=== PATIENT | female | born 1980 | race Caucasian/White ===

== ENCOUNTER 2020-09-01 14:18 | Inpatient (IN) | payer MEDICAID, SELFPAY ==
[2020-09-01] VITALS (13 sets, daily range): BP systolic 143–185; BP diastolic 77–129; PULSE 103–118; RESP 15–24; TEMP 36.2–36.9; O2SAT 93–98; BMI 33.6; BMI 38.9
--- NOTE | 2020-09-01 15:07 | EKG12_ITS ---
Test Reason : EDEMA Blood Pressure : / mmHG Vent. Rate : 114 BPM Atrial Rate : 114 BPM P-R Int : 130 ms QRS Dur : 084 ms QT Int : 292 ms P-R-T Axes : 042 103 044 degrees QTc Int : 402 ms Sinus tachycardia Rightward axis Low voltage QRS Nonspecific T wave abnormality Abnormal ECG Confirmed by MIRELA NAZARIO, CHRIS ([id number]), editorial manager CAROLE WESTBROOK ([id number]) on 09/03/2020 12:43:55 PM Referred By: BB Confirmed By:CHRIS DIETZ MD
--- NOTE | 2020-09-01 15:07 | RAD_ITS ---
STUDY: X-RAY CHEST REASON FOR EXAM: Female, 40 years old. PT ARRIVES TO ED WITH BILAT LOWER EXTREMITY SWELLING AND BLISTERS. TECHNIQUE: Single AP portable view of the chest. COMPARISON: None. FINDINGS: EKG electrodes are seen. Patchy bibasilar infiltrates worse in the right lower lobe with blunting of both costophrenic angles worse on the right side. There is borderline cardiomegaly. Normal mediastinum and elham. Normal visualized pulmonary arteries. Normal visualized aortic arch and descending thoracic aorta. Normal visualized thoracic spine. Normal visualized ribs, clavicles, and shoulders. There is no demonstrated abnormality of the visualized soft tissue structures of the upper abdomen. RAD/Chest 1 View (Portable) IMPRESSION: Patchy bibasilar infiltrates worse on the right side with blunting of both costophrenic angles. Borderline cardiomegaly. Electronically Signed: Ridge Geronimo MD at 15:54 EST , Service support ,
--- NOTE | 2020-09-01 15:08 | ED.VIS.DYS ---
History of Present Illness Chief Complaint: Edema Informant: Patient Onset: Weeks - several Activity at onset: Light Activity - 10 feet or less and pt needs to stop and rest Timing: Waxes and wanes Quality: Dyspnea on exertion, Orthopnea Current Severity: Severe Maximum Severity: Severe Worsened by: Coughing, Exertion, Lying flat Relieved by: Rest Associated Symptoms: Cough - x1 week, Green sputum, - - intermittent changes in the way food tastes lately, but no loss of taste/smell. Negative for: Fever Chest Pain: None Narrative: Patient has had swelling in both of her lower legs for at least 2 months. In the last week or 2 it has become much worse, she has had splits in the skin of her feet and lower legs that have been oozing clear fluid at times, and the swelling has gone up to her lower abdomen. She has developed orthopnea and her dyspnea is with very little exertion. She states she does not leave the house and has not traveled out of the area, denies any contact with people with Covid that she knows of, and has never had a that she knows of. She denies any fevers or chills or myalgias lately. Her legs feel tight but do not hurt except for her heels which are sore from the splits in the skin. She does not have any known medical problems but admits that he has been years since she has seen PCP, she used to go to the [facility] locally for primary care. Past Medical History - Allergies and Home Meds Allergies/Adverse Reactions: Allergies acetaminophen [From Tylenol-Codeine #3] Allergy (Verified 09/01/20 14:24) Rash codeine phosphate [From Tylenol-Codeine #3] Allergy (Verified 09/01/20 14:24) Rash tramadol Allergy (Verified 09/01/20 14:24) Nausea Primary Care Physician: Eb Miller MD [Primary Care Provider] - Past Medical History: None Lives: Spouse/ Significant Other Smoking Status: Current every day smoker Drugs: None Review of Systems General: Reports: Malaise. Denies: Chills, Fever, Sweats Eyes: Denies: Visual changes - bilaterally, Diplopia ENT: Denies: Bilateral ear pain, Rhinorrhea, Sore throat Cardiovascular: Denies: Chest pain, Palpitations Respiratory: Reports: Dyspnea, Cough, Sputum, Dyspnea on exertion, Orthopnea Gastrointestinal: Denies: Abdominal pain, Nausea, Vomiting, Diarrhea, Melena, Hematochezia Genitourinary: Denies: Dysuria, Hematuria, Frequency Musculoskeletal: Reports: Swelling, Extremity Pain - Feet/heels only see HPI. Denies: Myalgias, Back pain Skin: Denies: Rash, Wounds Neurological: Denies: Headache, Weakness, Numbness Endocrine: Denies: Polyuria, Polydipsia, Heat intolerance, Cold intolerance Physical Exam Vital Signs/Narrative: Vital Signs Temp Pulse Resp BP Pulse Ox 09/01/20 14:19 97.2 F L 118 H 15 155/129 H 98 Inital Vital Signs reviewed: Yes General: Well nourished, Well developed, No Acute Distress Head: Normocephalic, Atraumatic Eyes: Perrl, EOMI ENT: Moist mucous membranes, No rhinorrhea Neck: Supple, Nontender, No lymphadenopathy, - - Mild JVD present Cardiovascular: Regular rate, Regular rhythm, No murmurs, Tachycardia Respiratory: No distress, CTA bilaterally, Chest nontender Abdomen: Soft, Nontender, Nondistended, Normal bowel sounds, - - Edema lower abdominal wall up to about the level of the umbilicus, nontender but erythematous with blanching Back: Nontender, Normal Inspection. Negative for: CVA tenderness Extremities: Tenderness - At heels only where there are several splits in the skin that do not appear acute, trying to heal, do not appear infected, no discharge expressible, Edema - 4+ all the way up to abdominal wall, symmetric bilateral lower extremities with changes of stasis dermatitis, - - 2+ palpable dorsalis pedis pulses, symmetric Skin: Rash - Erythematous nontender blanching discoloration of both legs all the way up, darker distally. Several splits in the skin, superficial, none appear to be infected.. Negative for: Cyanosis Neurological: Alert, Oriented x3, Cranial nerves II-XII grossly intact, Normal Strength, Normal Sensation, Normal Gait Psychological: Normal affect, Normal Mood Diagnostic/Tx/Re-eval Clinical Impression(s) from Imaging Studies Chest X-Ray 09/01/20 15:07 IMPRESSION: Patchy bibasilar infiltrates worse on the right side with blunting of both costophrenic angles. Borderline cardiomegaly. Electronically Signed: Ridge Geronimo MD at 15:54 EST , Service support , Chest CT 09/01/20 17:15 IMPRESSION: 1. Bilateral pleural effusions, right greater than left. 2. Groundglass infiltrate in the left upper lobe. 3. Small pericardial effusion. 4. Anasarca. Electronically Signed: Roosevelt ContiDO at 17:58 EST Tel [phone], Service support , 09/01/20 15:35 Mucosa - Nose SARS-CoV-2 Antigen (Rapid) - Final 09/01/20 15:14 Mucosa - Nasopharyngeal Influenza Types A,B Direct FA (LISA) - Final Laboratory Results 09/01/20 09/01/20 09/01/20 15:35 15:35 15:35 WBC 9.6 RBC 4.91 Hgb 14.0 Hct 44.7 MCV 91.0 MCH 28.5 MCHC 31.3 L RDW Std Deviation 50.8 H RDW Coeff of Bro 15.7 H Plt Count 237 MPV 10.7 Immature Gran % (Auto) 0.300 Neut % (Auto) 71.0 H Lymph % (Auto) 21.3 [place] % (Auto) 6.5 Eos % (Auto) 0.5 Baso % (Auto) 0.4 Absolute Neuts (auto) 6.8 Absolute Lymphs (auto) 2.04 Nucleated RBC % 0 Sodium 139 Potassium 3.8 Chloride 106 Carbon Dioxide 24.0 Anion Gap 9 BUN 14 Creatinine 0.81 Estim Creat Clear Calc 75.61 Est GFR (MDRD) Af Amer 99 Est GFR (MDRD) Non-Af 82 BUN/Creatinine Ratio 17.2 Glucose 126 H Calcium 8.3 L Troponin I 0.015 B-Natriuretic Peptide 784.8 H - Rhythm Strip Rhythm Strip: Sinus Tach Rate: 114 Ectopy: None - EKG Initial EKG Interpretation: No Acute Injury Pattern, Sinus Tachycardia, - - Low voltage. Prior: No Prior Treatment - Dyspnea: - - lasix - Medical Decision Making Differential includes renal failure or other renal syndrome such as nephrotic syndrome, congestive heart failure, venous insufficiency of the lower extremities. The work-up is more consistent with acute decompensated congestive heart failure. She remains fairly hypertensive, her blood pressure went up as high as 170/110. This is after she was given Lasix and urinated multiple times. Her chest x-ray shows what appeared to be possible infiltrates, and since she had low voltage on her EKG and had a resting tachycardia, given the clinical third spacing that she is doing that is fairly significant, I obtained a CT to rule out early cardiac tamponade. She does have a small pericardial effusion, but her heart size is otherwise normal and does not appear to be in tamponade. There are also pleural effusions much larger on the right than the left, and a small nonspecific groundglass infiltrate in the left upper lobe which I suspect is more likely due to fluid than infection. Given all of this, I recommend admission to the hospital not only for diuresis, but for echocardiogram and further work-up. Patient agreeable with admission. ED Disposition - Plan for ED Patient: Disposition: Acute Care Hospital [facility] Diagnosis: Acute CHF, Anasarca, Pleural effusion on right, Accelerated hypertension Referrals: Eb Miller MD [Primary Care Provider] -
[2020-09-01] MEDS: Furosemide 20 MG/2 ML VIAL IV (15:29)
[2020-09-01 15:53] LABS: Absolute Lymphocyte Count 2.04 X10^3/uL (0.83-4.51); Absolute Neutrophil Count 6.8 X10^3/uL (2.0-7.7); Basophil# 0.04 X10^3/uL; Basophil% 0.4 % (0-1); Eosinophil# 0.05 X10^3/uL; Eosinophils% 0.5 % (0-5); Hematocrit 44.7 % (37-47); Lymphocyte # 2.04 X10^3/ul (4.0); Lymphocyte % 21.3 % (19-41); Mean Corp Hgb Conc 31.3 g/dL (32-36); Mean Corpuscular Hgb 28.5 pg (27.0-32.0); Mean Platelet Vol. 10.7 fl (6.2-12.0); Monocyte# 0.62 X10^3/uL; Monocyte% 6.5 % (0-10); NRBC Flagged by Analyzer 0 % (0-5); Platelet Count 237 K/mm3 (150-450); RBC Distribution Width CV 15.7 % (11.6-14.6); RBC Distribution Width SD 50.8 fl (35.1-43.9); Red Blood Count 4.91 M/mm3 (4.2-5.4); White Blood Count 9.6 K/mm3 (4.4-11.0)
[2020-09-01 16:17] LABS: BNP,B-Type NATRIURETIC PEPTIDE 784.8 pg/mL (0-100)
[2020-09-01 16:22] LABS: Anion Gap 9 (5-15); BUN 14 mg/dL (7-18); BUN/Creat Ratio 17.2 RATIO (10-20); Calcium,Total 8.3 mg/dL (8.5-10.1); Chloride 106 mmol/L (98-107); Creatinine, Serum 0.81 mg/dL (0.55-1.02); EST Glomerular Filtration Rate 82 mL/min (>60); Est Glom Filt Rate - Afr Amer 99 mL/min (>60); Estimated Creatinine Clearance 75.61 ml/min; Glucose 126 mg/dL (74-106); Potassium 3.8 mmol/L (3.5-5.1); Sodium Level 139 mmol/L (136-145)
--- NOTE | 2020-09-01 17:15 | CT_ITS ---
STUDY: CT CHEST WITHOUT CONTRAST REASON FOR EXAM: Female, 40 years old. Bilateral lower extremity swelling. Blistering. RADIATION DOSAGE (If Supplied By Facility): CTDIvol = ( 19.18 ) mGy, DLP = ( 608.556 ) mGycm TECHNIQUE: Transaxial imaging was performed without the administration of intravenous contrast material. Multiplanar coronal and sagittal images were reformatted. Individualized dose optimization techniques were used for this CT. COMPARISON: Chest, 09/01/2020. FINDINGS: There is a large to moderate right pleural effusion with mild subsegmental atelectasis. There is a small left pleural effusion. There is a groundglass infiltrate in the left upper lobe. The heart is normal in size. Small pericardial effusion. Normal mediastinum. Normal hilar regions. Normal unenhanced pulmonary arteries. Normal aorta arch and descending thoracic aorta. Normal osseous structures. There is diffuse anasarca soft tissues of the chest wall and back. There is no demonstrated abnormality of the visualized upper abdomen. CT/Chest without Contrast IMPRESSION: 1. Bilateral pleural effusions, right greater than left. 2. Groundglass infiltrate in the left upper lobe. 3. Small pericardial effusion. 4. Anasarca. Electronically Signed: Roosevelt Conti DO at 17:58 EST Tel [phone], Service support ,
[2020-09-01] MEDS: Nitroglycerin SL (ED/IMG/CATH) 0.4 MG TABLET SUBLINGUAL (18:53)
--- NOTE | 2020-09-01 18:54 | HP.PCM_ITS ---
Problem List (1) Acute CHF Status: Acute (2) Anasarca Status: Acute (3) Pleural effusion on right Status: Acute (4) Accelerated hypertension Status: Acute History of Present Illness Date of Admission: 09/01/20 Chief Complaint: Leg edema, shortness of breath. The patient is a 40 year old F with no significant past medical history presented to the emergency room because of edema and shortness of breath. At this time, patient is very anxious and irritable. She stated that she has been having this leg edema for at least couple of months, involving both legs and extending up to the lower abdomen, associated with weight gain as well as shortness of breath. Also, she complains of shortness of breath that has been going on for several weeks, mainly exertional, can walk only for about 10 feet or less, aggravated by more activity, reported associated orthopnea as well and without relieving factors. She denied chest pain, palpitation, dizziness or lightheadedness. Her boyfriend mentioned that her blood pressure has been high lately, it has been up to 180 systolic. She denied history of hypertension and denied being on antihypertensive medications. She admitted using amphetamines. In the emergency department, she was afebrile, tachycardic, blood pressure was elevated, pulse ox was 97% on room air. Routine blood work was unremarkable. EKG revealed normal sinus rhythm, low voltage QRS, no acute ischemic changes. Troponin was negative. BNP was elevated at 784. Chest x-ray revealed bilateral pleural effusion, more on the right side, pulmonary vascular congestion, cardiomegaly. CTA chest done and also showed bilateral pleural effusion, more on the right side, small pericardial effusion, anasarca, no PE or dissection. She is being admitted for acute CHF, anasarca and uncontrolled hypertension. Past Medical History Allergies acetaminophen [From Tylenol-Codeine #3] Allergy (Verified 09/01/20 14:24) Rash codeine phosphate [From Tylenol-Codeine #3] Allergy (Verified 09/01/20 14:24) Rash tramadol Allergy (Verified 09/01/20 14:24) Nausea Home Medications: Ambulatory Orders Medication Instructions Recorded NK 09/01/20 Surgical History: - - Ovarian cyst removal. 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 - *Family History Maternal History Items: No pertinent history Paternal History Items: Hypertension Review of Systems Constitutional: Denies: Anorexia, Chills, Fever, Weakness Eyes: Denies: Blurred vision, Double vision, Drainage, Redness HEENT: Denies: Difficulty Hearing, Ear Pain, Eye Pain, Nasal Congestion, Sore Throat Cardiovascular: Reports: Edema, Orthopnea. Denies: Chest Pain, Claudication, Chest Pressure, Chest Tightness, Heaviness, Light Headedness, Palpitations Respiratory: Reports: Cough, Shortness of breath upon exertion. Denies: Pleuritic Pain, Sputum production, Wheezing Gastrointestinal: Denies: Abdominal Pain, Constipation, Diarrhea, Nausea, Vomiting Genitourinary: Denies: Dysuria, Frequency, Hematuria Musculoskeletal: Denies: Arm Pain, Back Pain, Foot Pain Skin: Denies: Dryness, Rash Neurological: Denies: Balance problems, Blurred vision, Double vision, Slurred speech, Confusion, Headaches, Incoordination Psychiatric: Denies: Anxiety, Depression Endocrine: Denies: Change in Body Habitus, Polydipsia, Polyuria VTE Information - Inpt Only VTE Present on Admission: No VTE Mechan Device Prophylaxis: None VTE Pharm Prophylaxis ordered?: No Patient Problems: Active and Suspected Problems Acute CHF (Acute) Anasarca (Acute) Pleural effusion on right (Acute) Accelerated hypertension (Acute) - Physical Exam Vitals/I&O's: Vital Signs Temp Pulse Resp BP Pulse Ox 97.2 F L 113 H 23 H 170/110 H 97 09/01/20 14:19 09/01/20 18:11 09/01/20 18:11 09/01/20 18:15 09/01/20 18:11 Oxygen Delivery Method Room Air Weight: 190 lb Body Mass Index (BMI) 33.6 General: Alert, Oriented x3, Cooperative, - - Anxious, irritable. HEENT: Atraumatic, PERRLA, EOMI, Normocephalic Oral: Moist Mucosa, No Gingival or Mucosal Lesions/ Ulcerations Neck: Supple, No JVD, Negative Carotid Bruits, Trachea Midline, Thyroid Normal Size and Texture Lungs: No rhonchi, No wheeze, No rales, Diminished, Short of Breath, - - Decreased breath sounds at the bases, more on the right base, otherwise clear. Cardiovascular: Regular rate, Regular Rhythm, Normal S1, Normal S2, PMI Normal, Tachycardic Abdomen: Bowel Sounds Present, Soft, Non Tender, Non-Distended, No Hepato- splenomegaly, Obese Extremities: No clubbing, No cyanosis, Edema - ++ Edema extending up to the lower abdomen. Mild erythema. Multiple bilateral lower extremity dry blisters. Skin: No rashes, Ulcer/ Wound Lymphatic: No Cervical, Supraclavicular, or Inguinal Adenopathy Neurological: Cranial nerves II-XII grossly intact, Motor Exam 5/5 strength throughout Psych/Mental Status: Agitated, Anxious, Restless Microbiology Past 72 Hours 09/01/20 15:35 Mucosa - Nose SARS-CoV-2 Antigen (Rapid) - Final 09/01/20 15:14 Mucosa - Nasopharyngeal Influenza Types A,B Direct FA (LISA) - Final Laboratory Results 09/01/20 15:35: WBC 9.6, RBC 4.91, Hgb 14.0, Hct 44.7, MCV 91.0, MCH 28.5, MCHC 31.3 L, RDW Std Deviation 50.8 H, RDW Coeff of Bro 15.7 H, Plt Count 237, MPV 10.7, Immature Gran % (Auto) 0.300, Neut % (Auto) 71.0 H, Lymph % (Auto) 21.3, [place] % (Auto) 6.5, Eos % (Auto) 0.5, Baso % (Auto) 0.4, Absolute Neuts (auto) 6.8, Absolute Lymphs (auto) 2.04, Nucleated RBC % 0 09/01/20 15:35: Sodium 139, Potassium 3.8, Chloride 106, Carbon Dioxide 24.0, Anion Gap 9, BUN 14, Creatinine 0.81, Estim Creat Clear Calc 75.61, Est GFR (MDRD) Af Amer 99, Est GFR (MDRD) Non-Af 82, BUN/Creatinine Ratio 17.2, Glucose 126 H, Calcium 8.3 L, Troponin I 0.015 09/01/20 15:35: B-Natriuretic Peptide 784.8 H Clinical Impression(s) from Imaging Studies Chest X-Ray 09/01/20 15:07 IMPRESSION: Patchy bibasilar infiltrates worse on the right side with blunting of both costophrenic angles. Borderline cardiomegaly. Electronically Signed: Ridge Geronimo MD at 15:54 EST , Service support , Chest CT 09/01/20 17:15 IMPRESSION: 1. Bilateral pleural effusions, right greater than left. 2. Groundglass infiltrate in the left upper lobe. 3. Small pericardial effusion. 4. Anasarca. Electronically Signed: Roosevelt Conti DO at 17:58 EST Tel [phone], Service support , Assessment/Plan All Active Problems Acute CHF (Acute) Anasarca (Acute) Pleural effusion on right (Acute) Accelerated hypertension (Acute) This is a 40 years old female patient presented to the emergency room for bilateral leg edema, shortness of breath and orthopnea, found to have elevated blood pressure and findings consistent with acute CHF and she is being admitted for evaluation and treatment. #1 acute CHF of unspecified type/anasarca: Apparently, patient had uncontrolled hypertension for unknown time. Chest x-ray and CTA chest reviewed. EKG revealed sinus tachycardia with low voltage QRS, no acute ischemic changes. BMP is elevated. Troponin was normal. Plan: Admit to PCU, cardiac monitoring, serial cardiac enzymes, 2D echocardiogram, start IV Lasix for diuresis, start Coreg twice daily, lisinopril daily, input output chart, check TSH, hemoglobin A 1c, lipid profile, start baby aspirin, repeat CBC and BMP tomorrow morning. #2 uncontrolled newly diagnosed hypertension: According to the patient's boyfriend, her blood pressure has been high lately, it is up to 180 systolic. Plan: Start Coreg 6.25 mg p.o. twice daily, lisinopril 10 mg p.o. daily, IV hydralazine as needed. #3 bilateral pleural effusion: This is probably due to CHF. CTA chest reviewed, no PE or dissection. She is afebrile, no leukocytosis, I doubt pneumonia. Plan for diuresis as above. #4 drug abuse: Patient admitted using amphetamines. We will do a urine drug screen. #5 DVT prophylaxis: Low risk patient, no prophylaxis indicated, ambulate. This note was generated with [employer] software. It may contain incorrect words, spelling, and punctuation that were not noted in checking the note before signing. Inpatient E&M: 81095 Init Hosp L3
--- NOTE | 2020-09-01 19:22 | ECHOD_ITS ---
Reason For Study: CHF Procedure This was a 2D Doppler, Color Flow transthoracic echocardiogram. Technically difficult study, patient scanned sitting up. Unable to use Definity due to increased pressures. The study was technically difficult. Exam performed portable in patient room. Left Ventricle Normal LV size. D shaped septum in systole and diastole. Mild concentric left ventricular hypertrophy. Left ventricular systolic function is normal. The estimated ejection fraction is 55 %. Diastolic function is indeterminate. No regional wall motion abnormalities noted. Right Ventricle Severely dilated right ventricle. Moderate global right ventricular systolic dysfunction. Atria Normal left atrium. The right atrium is severely enlarged. No doppler evidence for ASD. Mitral Valve There is no mitral annular calcification. Normal mitral valve. Trivial mitral valve insufficiency. Tricuspid Valve Mild diffuse thickening of the tricuspid valve. Moderately severe (3+) tricuspid valve insufficiency. Right ventricular systolic pressure estimated to be 82 mmHg. Aortic Valve Trisinus/trileaflet aortic valve. Mild focal aortic valve calcification. Pulmonic Valve The pulmonic valve is not well visualized. Mild-Moderate (1-2+) pulmonic valve insufficiency. Great Vessels Normal sized aortic root. Pericardium/Pleural Small pericardial effusion. There are no echocardiographic indications of cardiac tamponade. MMode/2D Measurements & Calculations LVIDd: 3.1 cm IVSd: 1.5 cm Ao root diam: 3.0 cm LVIDs: 2.1 cm LVPWd: 1.3 cm LA dimension: 2.9 cm RVDd: 5.6 cm FS: 34.0 % LAV(MOD-sp4): 23.5 ml LA A4 area: 12.2 cm2 RA A4 area: 20.0 cm2 Time Measurements MV dec time: 0.18 sec Doppler Measurements & Calculations MV E max marty: 44.8 cm/sec Lat Peak E' Marty: 6.1 cm/sec Med Peak E' Marty: 5.3 cm/sec MV A max marty: 64.4 cm/sec E/E' lat: 7.3 E/E' med: 8.5 MV E/A: 0.69 MV V2 max: 65.9 cm/sec MV P1/2t max marty: 31.8 cm/sec Ao V2 max: 84.8 cm/sec MV max P.7 mmHg MV P1/2t: 68.7 msec Ao max P.9 mmHg MV V2 mean: 32.3 cm/sec MV dec slope: 135.6 cm/sec2 MV mean P.53 mmHg MVA(P1/2t): 3.2 cm2 MV V2 VTI: 9.7 cm LV V1 max: 77.1 cm/sec PA V2 max: 76.1 cm/sec TR max marty: 429.1 cm/sec LV V1 max P.4 mmHg TR max P.7 mmHg Interpretation Summary The study was technically difficult. Left ventricular systolic function is normal. The estimated ejection fraction is 55 %. D shaped septum in systole and diastole. Mild concentric left ventricular hypertrophy. Severely dilated right ventricle. Moderate global right ventricular systolic dysfunction. The right atrium is severely enlarged. Trivial mitral valve insufficiency. Mild diffuse thickening of the tricuspid valve. Moderately severe (3+) tricuspid valve insufficiency. Mild focal aortic valve calcification. Mild-Moderate (1-2+) pulmonic valve insufficiency. Small pericardial effusion. There are no echocardiographic indications of cardiac tamponade. Right ventricular systolic pressure estimated to be 82 mmHg c/w severe pulmonary hypertension. Diastolic function is indeterminate. Ordering Physician: Joel Jacques Referring Physician: Eb Miller Performed By: Anuj Lyons RCS
[2020-09-01 20:01] LABS: Thyroid Stim Hormone (TSH) 2.34 uIU/mL (0.358-3.74)
[2020-09-01] MEDS: hydrALAZINE 20 MG/ML Vial 10 MG IV (20:08)
[2020-09-01] MEDS: Furosemide 40 MG/4 ML Vial IV (20:22)
[2020-09-01] MEDS: Carvedilol 6.25 MG Tablet PO (20:22)
[2020-09-01 20:51] LABS: Hemoglobin A1c 6.5 % (3.8-5.6)
--- NOTE | 2020-09-01 21:19 | NURSING ---
Patient requested evening medications early.
[2020-09-01] MEDS: LORazepam 2 MG/ML Syringe 0.5 MG IV (22:43)
[2020-09-02] VITALS (10 sets, daily range): BP systolic 110–145; BP diastolic 85–103; PULSE 96–109; RESP 18; TEMP 36.1–37.1; O2SAT 93–98
[2020-09-02] LABS: Bedside Glucose 106 mg/dL (70-110)
[2020-09-02 06:34] LABS: Absolute Lymphocyte Count 1.99 X10^3/uL (0.83-4.51); Absolute Neutrophil Count 7.3 X10^3/uL (2.0-7.7); Basophil# 0.05 X10^3/uL; Basophil% 0.5 % (0-1); Eosinophil# 0.05 X10^3/uL; Eosinophils% 0.5 % (0-5); Hematocrit 45.4 % (37-47); Hemoglobin 13.5 g/dL (12.0-15.0); Lymphocyte # 1.99 X10^3/ul (4.0); Lymphocyte % 19.5 % (19-41); Mean Corp Hgb Conc 29.7 g/dL (32-36); Mean Corpuscular Hgb 27.6 pg (27.0-32.0); Mean Corpuscular Volume 92.7 fL (81-99); Monocyte# 0.74 X10^3/uL; Monocyte% 7.3 % (0-10); NRBC Flagged by Analyzer 0.2 % (0-5); Neutrophil # 7.29 X10^3/uL (2.7-7.7); Neutrophil % 71.6 % (47-70); Platelet Count 229 K/mm3 (150-450); RBC Distribution Width CV 15.9 % (11.6-14.6); RBC Distribution Width SD 53.8 fl (35.1-43.9); White Blood Count 10.2 K/mm3 (4.4-11.0)
[2020-09-02] MEDS: 0.9% Saline Lock 10 ML Syringe IV ×2 (06:41→21:07)
[2020-09-02] MEDS: Furosemide 40 MG/4 ML Vial IV ×3 (06:41→21:05)
[2020-09-02 07:01] LABS: Anion Gap 8 (5-15); BUN 13 mg/dL (7-18); BUN/Creat Ratio 14.5 RATIO (10-20); Calcium,Total 8.3 mg/dL (8.5-10.1); Chloride 105 mmol/L (98-107); Cholesterol 130 mg/dL (200); EST Glomerular Filtration Rate 74 mL/min (>60); Est Glom Filt Rate - Afr Amer 89 mL/min (>60); Estimated Creatinine Clearance 68.05 ml/min; Glucose 96 mg/dL (74-106); High Density Lipoprotein 33 mg/dL; Potassium 3.8 mmol/L (3.5-5.1); Sodium Level 139 mmol/L (136-145); Triglycerides 77 mg/dL; Very Low Density Lipoprotein 15 mg/dL (5-40)
[2020-09-02 07:49] LABS: Amphetamine Urine VISTA POSITIVE (<1000 ng/mL); Barbiturate Urine VISTA NEGATIVE (< 200 ng/mL); Benzodiazepine Urine VISTA NEGATIVE (< 200 ng/mL); Cocaine Urine VISTA NEGATIVE (< 300 ng/mL); Ecstacy Urine VISTA NEGATIVE (< 500 ng/mL); Methadone Urine VISTA NEGATIVE (< 300 ng/mL); PCP Urine VISTA NEGATIVE (< 25 ng/mL); THC Urine VISTA NEGATIVE (< 50 ng/mL); Vista UDS pH Range 6
--- NOTE | 2020-09-02 08:13 | NURSING ---
Was asked to see patient for redness and wounds to bilateral lower legs. Pt is not alert and oriented at this time. unable to tell me why she came to the hospital. bilateral lower legs are reddened with scattered scratches and some scabbed areas. bilateral heels are very dry and cracked. there is moderate edema noted. no drainage noted from the legs and no wounds that need wound care. washed legs and feet with soap and water. pat dry. applied aloe vesta to bilateral legs and feet. applied kerlix and TERE wraps from the base of the toes to just below the knees. pt tolerated well. See wound photos.
[2020-09-02] MEDS: Carvedilol 6.25 MG Tablet PO ×2 (10:07→21:05)
[2020-09-02] MEDS: Aspirin E.C. 81 MG Tablet PO (10:07)
[2020-09-02] MEDS: Lisinopril 20 MG Tablet PO (10:07)
--- NOTE | 2020-09-02 10:14 | NURSING ---
skin photo: left lower leg
--- NOTE | 2020-09-02 10:15 | NURSING ---
skin photo: right lower leg
--- NOTE | 2020-09-02 11:30 | CASEMGMT ---
ANGEL LUIS ROA assessment: Face to Face with patient for initial transition planning/care coordination assessment. ANGEL LUIS ROA introduced self and role at [facility], pt voices understanding and consents to assessment. Pt is lying in bed in no distress but falls asleep when not stimulated verbally. Pt is A/Ox4 and answers all questions appropriately at this time. Care providers, pharmacy, and demographics verified. Presentation: Pt arrives to ED w/ bilat lower extremity swelling/blister Admitting dx: Acute CHF, HTN PCP: Pt states does not currently have PCP, so list of local PCP's provided to pt. Specialists: Pt states no current specialists. Preferred Pharmacy: [facility] Insurance: Glez Prescription Benefit: Glez Living Will/HPOA: Pt states does not have LW/HPOA and declines AD info at this time. LNOK: Rebekah Leblanc, mother; Shemar Franco, sig other Living Arrangements: Pt states lives with sig other in 1 story apartment and states no concerns at home at this time. Pt states is independent with ADL's. Transportation: Pt states her friends drive and states no transportation concerns. DME/HHC: Pt states has a rollator and states no need for any further DME. Pt states no hx of HHC or SNF in the past. Pt states no concerns with going home at time of discharge. Pt states is currently unemployed. Pt states smokes about a pack of cigarettes daily, does not drink ETOH and declines recreational drug use. Pt states no further concerns/needs at this time. CM to follow for any further discharge planning/needs. Advised pt to ask for CM if any further questions/concerns/needs arise, voices understanding. Pt Goal: [place] [facility]
--- NOTE | 2020-09-02 17:39 | PN_ITS ---
Patient Problems: Active and Suspected Problems Acute CHF (Acute) Anasarca (Acute) Pleural effusion on right (Acute) Accelerated hypertension (Acute) Subjective: Patient was seen and examined today, earlier this morning she appeared very lethargic and confused, this afternoon she is appropriate, I talked with her and her boyfriend who was in the room. Patient's echocardiogram showed a normal EF but she has severe pulmonary hypertension, patient states she does not have a primary care physician. - Physical Exam Vitals/I&O's: Vital Signs Temp Pulse Resp BP Pulse Ox 97.2 F L 106 H 18 115/86 H 95 09/02/20 13:12 09/02/20 15:00 09/02/20 13:12 09/02/20 13:12 09/02/20 13:12 Oxygen Delivery Method Room Air Weight: 99.7 kg Body Mass Index (BMI) 38.9 Intake and Output for Last 24 Hours 08/31/20 09/01/20 09/02/20 23:59 23:59 23:59 Intake Total 840 / 840 Output Total 1500 / 1500 Balance -660 / -660 General: Alert, Oriented x3, Cooperative, No apparent distress, Well developed HEENT: Atraumatic, PERRLA, EOMI, Normocephalic Oral: Moist Mucosa Neck: Supple, No JVD, Trachea Midline, Thyroid Normal Size and Texture Lungs: Clear to auscultation, Normal air movement, No rhonchi, No wheeze, No rales Cardiovascular: Regular rate, Regular Rhythm, Normal S1, Normal S2, No murmurs, PMI Normal, No rub noted, No Gallop Abdomen: Bowel Sounds Present, Soft, Non Tender, Non-Distended Extremities: No clubbing, No cyanosis, No edema, Capillary Refill Less than 3 Seconds Skin: No rashes, No breakdown Musculoskeletal: No Tenderness to Palpation of Joints or Extremities Neurological: Cranial nerves II-XII grossly intact, Neuro grossly intact, Sensory exam intact to light touch and pain Psych/Mental Status: Normal Affect, Appropriate, Alert and oriented to time, place, person, mood and affect Microbiology Past 72 Hours 09/01/20 15:35 Mucosa - Nose SARS-CoV-2 Antigen (Rapid) - Final 09/01/20 15:14 Mucosa - Nasopharyngeal Influenza Types A,B Direct FA (LISA) - Final Laboratory Results 09/01/20 15:35: TSH 2.34 09/01/20 20:00: Hemoglobin A1c 6.5 H 09/01/20 20:00: Troponin I 0.016 09/01/20 22:35: Troponin I 0.018 09/01/20 23:56: POC Glucose 106 09/02/20 06:20: WBC 10.2, RBC 4.90, Hgb 13.5, Hct 45.4, MCV 92.7, MCH 27.6, MCHC 29.7 L D, RDW Std Deviation 53.8 H, RDW Coeff of Bro 15.9 H, Plt Count 229, MPV 11.0, Immature Gran % (Auto) 0.600, Neut % (Auto) 71.6 H, Lymph % (Auto) 19.5, Crawford % (Auto) 7.3, Eos % (Auto) 0.5, Baso % (Auto) 0.5, Absolute Neuts (auto) 7.3, Absolute Lymphs (auto) 1.99, Nucleated RBC % 0.2 09/02/20 06:20: Sodium 139, Potassium 3.8, Chloride 105, Carbon Dioxide 26.0, Anion Gap 8, BUN 13, Creatinine 0.90, Estim Creat Clear Calc 68.05, Est GFR (MDRD) Af Amer 89, Est GFR (MDRD) Non-Af 74, BUN/Creatinine Ratio 14.5, Glucose 96, Calcium 8.3 L, Triglycerides 77, Cholesterol 130, LDL Cholesterol 82, VLDL Cholesterol 15, HDL Cholesterol 33 L 09/02/20 07:09: Urine Opiates Screen NEGATIVE, Urine Methadone Screen NEGATIVE, Ur Barbiturates Screen NEGATIVE, Ur Phencyclidine Scrn NEGATIVE, Ur Amphetamines Screen POSITIVE H, U Methamphetamin-MDMA NEGATIVE, U Benzodiazepines Scrn NEGATIVE, Urine Cocaine Screen NEGATIVE, U Cannabinoids Screen NEGATIVE, Ur Drug Screen Comment Current Medications Aspirin (Aspirin E.C. 81 Mg Tablet) 81 mg PO DAILY@0800 [facility] Last Admin: 09/02/20 10:07 Dose: 81 mg Documented by: Carvedilol (Carvedilol 6.25 Mg Tablet) 6.25 mg PO BID [facility] Last Admin: 09/02/20 10:07 Dose: 6.25 mg Documented by: Furosemide (Furosemide 40 Mg/4 Ml Vial) 40 mg IV Q8 [facility] Last Admin: 09/02/20 13:14 Dose: 40 mg Documented by: Hydralazine HCl (Hydralazine 20 Mg/Ml Vial) 10 mg IV Q6H PRN PRN PRN Reason: for SBP>160 Last Admin: 09/01/20 20:08 Dose: 10 mg Documented by: Sodium Chloride () 250 mls @ 15 mls/hr IV .[id number] PRN PRN Reason: Saline Flush Sodium Chloride () 250 mls @ 15 mls/hr IV .[id number] PRN PRN Reason: Additional IVPB Infusion Lisinopril (Lisinopril 20 Mg Tablet) 20 mg PO DAILY [facility] Last Admin: 09/02/20 10:07 Dose: 20 mg Documented by: Lorazepam (Lorazepam 2 Mg/Ml Syringe) 0.5 mg IV Q8H PRN PRN PRN Reason: ANXIETY Last Admin: 09/01/20 22:43 Dose: 0.5 mg Documented by: Ondansetron HCl (Ondansetron 4 Mg/2 Ml Vial) 4 mg IV Q8H PRN PRN PRN Reason: NAUSEA/VOMITING Senna/Docusate Sodium (Senna/Docusate Sodium 1 Tablet) 2 tablet PO BID PRN PRN PRN Reason: Constipation Sodium Chloride (0.9% Saline Lock 10 Ml Syringe) 10 - 40 ml IV UD PRN PRN Reason: SALINE FLUSH Last Admin: 09/02/20 06:41 Dose: 10 ml Documented by: Zolpidem Tartrate (Zolpidem Tartrate 5 Mg Tablet) 5 mg PO QHS PRN PRN PRN Reason: INSOMNIA Medical Necessity - Tobacco Use Smoking Status: Current every day smoker Tobacco Use: Cigarettes Assessment/Plan All Active Problems Acute CHF (Acute) Anasarca (Acute) Pleural effusion on right (Acute) Accelerated hypertension (Acute) #1 acute diastolic CHF-continue IV Lasix #2 severe pulmonary hypertension-patient will need follow-up with pulmonary medicine #3 tricuspid regurg-severe, this is probably contributing to the patient's pe ripheral edema #4 past history of drug abuse-patient denies that she is abusing drugs at this time, her talk screen was positive for amphetamine on admission. Inpatient E&M: [id number] [facility] L2
[2020-09-03 02:56] VITALS: PULSE 86
[2020-09-03 03:00] VITALS: BP 112/78; PULSE 94; RESP 18; TEMP 36.8; O2SAT 94
[2020-09-03 05:29] LABS: Anion Gap 9 (5-15); BUN 24 mg/dL (7-18); BUN/Creat Ratio 21.4 RATIO (10-20); Calcium,Total 8.4 mg/dL (8.5-10.1); Chloride 101 mmol/L (98-107); Creatinine, Serum 1.12 mg/dL (0.55-1.02); EST Glomerular Filtration Rate 57 mL/min (>60); Est Glom Filt Rate - Afr Amer 69 mL/min (>60); Estimated Creatinine Clearance 54.68 ml/min; Glucose 112 mg/dL (74-106); Potassium 3.9 mmol/L (3.5-5.1); Sodium Level 138 mmol/L (136-145)
[2020-09-03] MEDS: 0.9% Saline Lock 10 ML Syringe IV (06:08)
[2020-09-03] MEDS: Furosemide 40 MG/4 ML Vial IV (06:08)
[2020-09-03 06:57] VITALS: PULSE 96
[2020-09-03 08:06] VITALS: O2SAT 93
[2020-09-03 08:23] VITALS: BP 132/101; PULSE 94; RESP 18; TEMP 36.3; O2SAT 96
[2020-09-03] MEDS: Aspirin E.C. 81 MG Tablet PO (08:28)
[2020-09-03] MEDS: Lisinopril 20 MG Tablet PO (08:28)
[2020-09-03] MEDS: Carvedilol 6.25 MG Tablet PO (08:28)
--- NOTE | 2020-09-03 11:15 | PCM.DC ---
- Discharge Diagnoses Current Active Problems: Current Active and Chronic Problems Acute CHF (Acute) Anasarca (Acute) Pleural effusion on right (Acute) Accelerated hypertension (Acute) You will use the following diet at home:: No restrictions Your food should be the consistency of: Regular Your liquids should be the consistency of: Regular/Thin Discharge Activity: Return to Normal Activity Allergies/Adverse Reactions: Allergies codeine phosphate [From Tylenol-Codeine #3] Allergy (Verified 09/01/20 14:24) Rash tramadol Adverse Reaction (Verified 09/01/20 19:35) Nausea Medications to take at Discharge Carvedilol [Coreg (Beta Venancio)] 12.5 mg PO BID #60 tab 09/03/20 Furosemide [Lasix] 60 mg PO DAILY #90 tab 09/03/20 Lisinopril [Zestril] 20 mg PO DAILY #30 tab 09/03/20 Potassium Chloride 20 meq PO DAILY #60 capsule.er 09/03/20 The following prescriptions were given: Carvedilol [Coreg (Beta Venancio)] 12.5 mg PO BID #60 tab Transmission Status: Pending to [facility] Furosemide [Lasix] 60 mg PO DAILY #90 tab Transmission Status: Pending to [facility] Potassium Chloride 20 meq PO DAILY #60 capsule.er Transmission Status: Pending to [facility] Lisinopril [Zestril] 20 mg PO DAILY #30 tab Transmission Status: Pending to [facility] Primary Care Physician: Eb Miller MD [Primary Care Provider] - Test Results: Test results from this visit will be discussed in further detail at your follow-up appointment, if applicable. Please Follow Up With: your physician as scheduled
[2020-09-03 11:28] VITALS: O2SAT 97
--- NOTE | 2020-09-03 11:35 | CASEMGMT ---
Pt does not qualify for home oxygen at this time and states no need for any further resources at this time. Pt states would like PCP through [facility] and [facility] payroll secretary, setting up appt for pt at this time. Pt voices no further questions/concerns/needs at this time. Kathy HEIN CM
--- NOTE | 2020-09-03 11:48 | PHA.DC.MC ---
Pharmacy Service has performed discharge medication reconciliation and counseling for this patient. 1. CARVEDILOL 12.5MG PO BID 2. FUROSEMIDE 60MG PO DAILY 3. LISINOPRIL 20MG PO DAILY 4. POTASSIUM CHLORIDE 20MEQ PO DAILY The patient's discharge medication list was reviewed for discrepancies and discrepancies were resolved. Home Medications Carvedilol [Coreg (Beta Venancio)] 12.5 mg PO BID #60 tab 09/03/20 Furosemide [Lasix] 60 mg PO DAILY #90 tab 09/03/20 Lisinopril [Zestril] 20 mg PO DAILY #30 tab 09/03/20 Potassium Chloride 20 meq PO DAILY #60 capsule.er 09/03/20 The patient was counseled on the following discharge medications and changes in medications for homegoing were reviewed. The Reason for Use, instructions for use, and potential side effects were reviewed for all new medications. The patient's questions regarding all of their medications were answered. The patient was able to verbally demonstrate an understanding of their discharge medications.
--- NOTE | 2020-09-05 15:27 | DS.PCM_ITS ---
Discharge Date and Diagnosis - Problem List Patient Problems: Active and Suspected Problems Acute CHF (Acute) Anasarca (Acute) Pleural effusion on right (Acute) Accelerated hypertension (Acute) Date of Admission: 09/01/20 Date of Discharge: 09/03/20 - Primary Discharge Diagnosis Acute Problems: Active Problems #1 acute diastolic CHF #2 severe pulmonary hypertension #3 tricuspid regurg-severe #4 Drug abuse-methamphetamines #5 pleural effusion secondary to #1 #6 anasarca secondary to #1 #7 Hypertensive emergency with concurrent congestive heart failure Hospital Course and Treatment Consultations 09/01/20 19:22 Consult: Onc/Wound/school traffic supervisor Routine Comment: Operations: None Procedures: 2-D Echocardiogram Summary of Care Provided: The patient is a 40 year old F was seen in the emergency room at [facility] with a chief complaint of generalized edema and dyspnea on exertion. She denied any fevers or chills. Patient states it has been years since she had seen a PCP. Work-up in the emergency room included a chest x-ray which showed patchy bibasilar infiltrates worse on the right side with blunting of both costophrenic angles, patient had chest CT performed which showed bilateral pleural effusions right greater than left and groundglass infiltrate in the left upper lobe. Patient's COVID-19 antigen test was negative, patient's tox screen was positive for amphetamines which she denied using to this examiner but admitted at the time of admission that she did use them to the admitting physician,, patient's CBC was unremarkable and the patient's chemistry profile was unremarkable. Patient was admitted to PCU for congestive heart failure and pleural effusions, she was placed on IV diuresis and had an echocardiogram obtained which showed a normal EF but evidence of severe pulmonary hypertension and severe tricuspid insufficiency. Had a detailed conversation with the patient and her significant other who was in the room at the time of my examination on 09/02/2020 and went over the findings of her echocardiogram and ask the patient if she wanted to be transferred to a tertiary hospital for continuing care due to her severe valvular heart disease and pulmonary hypertension. Patient became very anxious and stated that she did not want to be transferred to another hospital, she understood that she could have severe pulmonary hypertension and need additional treatment but she wanted to consider seeing a specialist as an outpatient. On 09/03/2020, the patient was seen and examined: On examination she appeared in good health and spirits, she does not appear to be in any distress. Vital signs as documented. Skin warm and dry, there was noted to be a mottled appearance of some areas of her skin-these areas were not cold to the touch.. Neck without JVD, thyroid appears normal, trachea is midline, neck is supple. Lungs clear, normal air movement was noted. Heart exam notable for regular rhythm, normal sounds and absence of murmurs, rubs or gallops. Abdomen unremarkable and without evidence of organomegaly, masses, or abdominal aortic enlargement, bowel sounds are present in all 4 quadrants, no abdominal tenderness was noted. Extremities- there was generalized edema noted to the lower extremities, no cyanosis was noted, no clubbing was noted. Neuro: Cranial nerves II through XII are grossly intact, no focal motor deficits were noted, sensation to light touch and pinprick is intact, motor exam 5/5 throughout. Psych: Patient is alert and oriented x3, she does not appear anxious or depressed, she does not appear agitated. On 09/03/2020, patient was discharged home in stable condition, she was placed on several medications for treatment of her diastolic CHF and hypertension. She was urged to follow-up with a primary care physician after discharge. Patient Problems: Active and Suspected Problems Acute CHF (Acute) Anasarca (Acute) Pleural effusion on right (Acute) Accelerated hypertension (Acute) - Physical Exam Vitals/I&O's: Vital Signs Temp Pulse Resp BP Pulse Ox 97.4 F L 94 18 132/101 H 97 09/03/20 08:23 09/03/20 08:23 09/03/20 08:23 09/03/20 08:23 09/03/20 11:28 Oxygen Delivery Method Room Air Weight: 99.7 kg Body Mass Index (BMI) 38.9 Intake and Output for Last 24 Hours 09/03/20 09/04/20 09/05/20 23:59 23:59 23:59 Intake Total 290 / 290 Balance 290 / 290 Discharge Activity: Return to Normal Activity Home Medications: Medications to take at Discharge Carvedilol [Coreg (Beta Venancio)] 12.5 mg PO BID #60 tab 09/03/20 Furosemide [Lasix] 60 mg PO DAILY #90 tab 09/03/20 Lisinopril [Zestril] 20 mg PO DAILY #30 tab 09/03/20 Potassium Chloride 20 meq PO DAILY #60 capsule.er 09/03/20 Following Prescriptions Were Given to Patient: Carvedilol [Coreg (Beta Venancio)] 12.5 mg PO BID #60 tab Transmission Status: Received by [facility] Furosemide [Lasix] 60 mg PO DAILY #90 tab Transmission Status: Received by [facility] Potassium Chloride 20 meq PO DAILY #60 capsule.er Transmission Status: Received by [facility] Lisinopril [Zestril] 20 mg PO DAILY #30 tab Transmission Status: Received by [facility]30 Primary Care Physician: Eb Miller MD [Primary Care Provider] - Please Follow Up With: your physician as scheduled Disposition: Home Minutes spent on discharge:: 31 Patient Condition:: Stable Medical Necessity - Tobacco Use Smoking Status: Current every day smoker Tobacco Use: Cigarettes Meaningful Use Info Meaningful Use Diagnoses (Choose all that apply): CHF - CHF TERE/ARB ordered at discharge?: Yes Documented LVEF (%): 55 Inpatient E&M: [id number] [facility] Hosp
== END 2020-09-03 12:47 | disposition home or self-care (01) | DRG 194 ==
LOC: ED 18:32 → PCU 19:06
PROVIDERS: Admitting Provider Hospitalist; Emergency Provider Emergency Medicine; PCP Family Medicine; Visit Provider Internal Medicine
DX: I11.0 Hypertensive heart disease with heart failure (principal); I50.31 Acute diastolic (congestive) heart failure; I27.20 Pulmonary hypertension, unspecified; I07.1 Rheumatic tricuspid insufficiency; I16.1 Hypertensive emergency; F15.10 Other stimulant abuse, uncomplicated; F17.210 Nicotine dependence, cigarettes, uncomplicated
CPT/HCPCS: 36415; 71045; 71250; 80048; 80061; 80307; 82962; 83036; 83880; 84443; 84484; 85025; 87426; 87804; 93005; 93306; 97802; 99285; 99406; Q9957; A4216; J1940

== ENCOUNTER 2020-09-06 12:49 | Emergency (ER) | payer MEDICAID, SELFPAY ==
[2020-09-01 19:22] VITALS: BMI 38.9
[2020-09-06 12:52] VITALS: BP 108/68; PULSE 90; RESP 22; TEMP 36.3; O2SAT 94; BMI 38.9
--- NOTE | 2020-09-06 13:27 | ED.DCSUM_ITS ---
- ER Visit Summary Date of Service: 09/06/20 Chief Complaint: Shortness of breath History of Present Illness: The patient is a 40 F hospitalized for CHF. History of asthma, hypertension high cholesterol. Today follow-up with a new primary care physician Dr. Calvin and he sent her into the emergency department due to hypoxia and dyspnea. Patient denies any nausea, vomiting or diarrhea. No fever or chills. She is a smoker. Physical Examination: Middle-aged female no acute distress. Initial vital signs pulse ox 94% on room air initial blood pressure 108/68 afebrile. She does not look septic or toxic. H EENT exam unremarkable. Lungs clear to auscultation bilaterally. Heart regular rhythm rate about 90 no murmur. Chest wall nontender. Abdomen soft nontender. Patient moving all 4 extremities 1-2+ pitting edema both lower extremities. Calves are nontender. She is sores on her lower extremities. No purulent discharge. No cellulitis. Neurologically she is awake and alert with no focal motor deficits. Test Results: Chest x-ray shows no acute process. Portable 1 view interpreted by myself and radiologist. Stable cardiac silhouette. No significant CHF or pleural effusions. No infiltrate. EKG normal sinus rhythm rate 89 no acute signs of AK, ischemia or dysrhythmia. CBC showed a white count of 10. Hemoglobin 13. Chemistries normal normal creatinine and gap. PT/INR normal. Troponin normal. BNP was 491 but that is improved from several days ago was 784. Repeat exam at 2:45 PM patient is doing well. She is resting comfortably. Nurses will walk her with a pulse ox on room air she does well she be discharged home. Emergency Department Course and Treatment: Junie female with dyspnea and history of recent CHF and recent hospitalization. She has no chest pain. No hemoptysis. Treatment Plan: Follow the discharge instructions she received when she was discharged in the hospital recently. Continue current medications. Follow-up with your primary care physician. Counseled patient to stop smoking. Disposition: Charge Impression: Acute dyspnea History of CHF History of asthma This note was generated with [employer] software. It may contain incorrect words, spelling, and punctuation that were not noted in review of the chart prior to signing ED Disposition - Plan for ED Patient: Referrals: Eb Miller MD [STAFF PHYSICIAN] -
--- NOTE | 2020-09-06 13:27 | EKG12_ITS ---
Test Reason : CHEST PAIN Blood Pressure : / mmHG Vent. Rate : 089 BPM Atrial Rate : 089 BPM P-R Int : 130 ms QRS Dur : 090 ms QT Int : 364 ms P-R-T Axes : 067 109 263 degrees QTc Int : 442 ms Normal sinus rhythm Rightward axis Low voltage QRS Nonspecific T wave abnormality Abnormal ECG Confirmed by SUSHMA NAZARIO, ANDREW ([id number]), editorial intern CAROLE WESTBROOK ([id number]) on 09/08/2020 10:04:26 AM Referred By: TOM Confirmed By:ANDREW ORDAZ MD
--- NOTE | 2020-09-06 13:27 | RAD_ITS ---
STUDY: X-RAY CHEST REASON FOR EXAM: Female, 40 years old. Chest pain TECHNIQUE: Frontal view of the chest COMPARISON: 09/01/20 FINDINGS: The lungs are clear. There are no pleural effusions. There is no pneumothorax. The heart is stable in size. The visualized osseous structures are within normal limits. RAD/Chest 1 View (Portable) IMPRESSION: No acute thoracic pathology. Electronically Signed: Jake Taylor MD at 14:41 EST Tel , Service support ,
[2020-09-06 13:42] VITALS: O2SAT 97
[2020-09-06 14:13] LABS: Absolute Lymphocyte Count 1.93 X10^3/uL (0.83-4.51); Absolute Neutrophil Count 7.5 X10^3/uL (2.0-7.7); Basophil# 0.06 X10^3/uL; Basophil% 0.6 % (0-1); Eosinophil# 0.06 X10^3/uL; Eosinophils% 0.6 % (0-5); Hematocrit 45.4 % (37-47); Hemoglobin 13.6 g/dL (12.0-15.0); Lymphocyte # 1.93 X10^3/ul (4.0); Lymphocyte % 18.4 % (19-41); Mean Corpuscular Volume 93.6 fL (81-99); Mean Platelet Vol. 11.4 fl (6.2-12.0); Monocyte# 0.58 X10^3/uL; Monocyte% 5.5 % (0-10); NRBC Flagged by Analyzer 0.4 % (0-5); Neutrophil # 7.52 X10^3/uL (2.7-7.7); Neutrophil % 71.6 % (47-70); Platelet Count 234 K/mm3 (150-450); RBC Distribution Width SD 54.7 fl (35.1-43.9); Red Blood Count 4.85 M/mm3 (4.2-5.4); White Blood Count 10.5 K/mm3 (4.4-11.0)
[2020-09-06 14:17] LABS: International Normalized Ratio 1.2; Prothrombin Time (Protime)PT. 14.4 SECONDS (11.7-14.9)
[2020-09-06 14:29] LABS: Anion Gap 5 (5-15); BUN 24 mg/dL (7-18); Calcium,Total 8.3 mg/dL (8.5-10.1); Chloride 103 mmol/L (98-107); Creatinine, Serum 1.09 mg/dL (0.55-1.02); EST Glomerular Filtration Rate 59 mL/min (>60); Est Glom Filt Rate - Afr Amer 71 mL/min (>60); Estimated Creatinine Clearance 56.19 ml/min; Glucose 99 mg/dL (74-106); Potassium 4.1 mmol/L (3.5-5.1); Sodium Level 137 mmol/L (136-145)
[2020-09-06 14:33] LABS: BNP,B-Type NATRIURETIC PEPTIDE 491.7 pg/mL (0-100)
--- NOTE | 2020-09-06 14:49 | ED.DEP ---
ED Disposition - Plan for ED Patient: Disposition: Home or Assisted Living Instructions: ED Dyspnea Referrals: Eb Miller MD [STAFF PHYSICIAN] - 3-5 Days Additional Instructions: Return if you are feeling worse. Continue the home-going discharge instructions you got when you were discharged from the hospital. Continue your current medications.
[2020-09-06 15:06] VITALS: BP 158/84; PULSE 98; RESP 20; O2SAT 94; O2SAT 97
== END 2020-09-06 15:18 | disposition home or self-care (01) ==
PROVIDERS: Emergency Provider Emergency Medicine
DX: R06.00 Dyspnea, unspecified (principal); J45.909 Unspecified asthma, uncomplicated; I11.0 Hypertensive heart disease with heart failure; I50.9 Heart failure, unspecified; F17.200 Nicotine dependence, unspecified, uncomplicated
CPT/HCPCS: 71045; 80048; 83880; 84484; 85025; 85610; 93005; 99284

== ENCOUNTER 2020-09-17 05:37 | Inpatient (IN) | payer MEDICAID, SELFPAY ==
[2020-09-17] VITALS (11 sets, daily range): BP systolic 94–115; BP diastolic 65–79; PULSE 82–91; RESP 16–22; TEMP 35.7–36.8; O2SAT 94–100; BMI 38.6
--- NOTE | 2020-09-17 05:47 | RAD_ITS ---
STUDY: X-RAY CHEST REASON FOR EXAM: Female, 40 years old. Shortness of breath TECHNIQUE: Single AP portable view of the chest. COMPARISON: 09/06/2020 chest x-ray. CT scan 09/01/2020. FINDINGS: There is a small right pleural effusion.. There is overlying atelectasis versus small infiltrate in the right lung base. There is mild cardiac enlargement. Normal mediastinum and elham. Normal visualized aortic arch and descending thoracic aorta. There are no demonstrated acute fractures or destructive bone lesions. There is no demonstrated abnormality of the visualized soft tissue structures of the upper abdomen. RAD/Chest 1 View (Portable) IMPRESSION: Small right pleural effusion with overlying atelectasis or small infiltrate in the right lung base. Mild cardiomegaly. Electronically Signed: Dimas Tian MD at 6:22 EST , Service support ,
--- NOTE | 2020-09-17 05:48 | EKG12_ITS ---
Test Reason : SOB Blood Pressure : / mmHG Vent. Rate : 085 BPM Atrial Rate : 085 BPM P-R Int : 132 ms QRS Dur : 086 ms QT Int : 472 ms P-R-T Axes : 057 106 065 degrees QTc Int : 561 ms Normal sinus rhythm Rightward axis Low voltage QRS Nonspecific T wave abnormality Abnormal ECG Confirmed by MONICA NAZARIO, MARIAMA ([id number]), marketing editor CAROLE WESTBROOK ([id number]) on 09/22/2020 10:18:51 A M Referred By: PRATIMA Confirmed By:LIAM ANDERSON MD
[2020-09-17 05:55] LABS: Absolute Lymphocyte Count 1.99 X10^3/uL (0.83-4.51); Absolute Neutrophil Count 7.2 X10^3/uL (2.0-7.7); Basophil# 0.03 X10^3/uL; Basophil% 0.3 % (0-1); Eosinophil# 0.08 X10^3/uL; Eosinophils% 0.8 % (0-5); Hematocrit 41.7 % (37-47); Hemoglobin 12.4 g/dL (12.0-15.0); Lymphocyte # 1.99 X10^3/ul (4.0); Lymphocyte % 19.6 % (19-41); Mean Corp Hgb Conc 29.7 g/dL (32-36); Mean Corpuscular Hgb 27.9 pg (27.0-32.0); Mean Corpuscular Volume 93.9 fL (81-99); Mean Platelet Vol. 11.2 fl (6.2-12.0); Monocyte# 0.82 X10^3/uL; Monocyte% 8.1 % (0-10); NRBC Flagged by Analyzer 0.5 % (0-5); Neutrophil # 7.19 X10^3/uL (2.7-7.7); Neutrophil % 70.7 % (47-70); Platelet Count 173 K/mm3 (150-450); RBC Distribution Width CV 16.5 % (11.6-14.6); RBC Distribution Width SD 56.2 fl (35.1-43.9); Red Blood Count 4.44 M/mm3 (4.2-5.4); White Blood Count 10.2 K/mm3 (4.4-11.0)
--- NOTE | 2020-09-17 05:58 | ED.VIS.GEN ---
History of Present Illness Chief Complaint: Shortness of Breath Narrative: This patient is a 40-year-old female who presents with shortness of breath. She has a history of hypertension, congestive heart failure, methamphetamine use. She states she has been short of breath for couple of weeks. She states her cough has been worse since last night. She complains of 1-1/2 days of diarrhea. No fevers. No vomiting. No congestion or rhinorrhea. She does complain of swelling on both of her legs but states it is actually quite a bit better since her hospitalization. Past Medical History - Allergies and Home Meds Allergies/Adverse Reactions: Allergies codeine phosphate [From Tylenol-Codeine #3] Allergy (Verified 09/17/20 05:44) Rash tramadol Adverse Reaction (Verified 09/17/20 05:44) Nausea Primary Care Physician: Care Physician,No Primary [NON-STAFF] - Past Medical History: - - Hypertension, CHF Surgical History: - - Ovarian cyst removal. Smoking Status: Former smoker - Family History Maternal Family History: Reports: No pertinent history Paternal Family History: Reports: Hypertension Review of Systems All systems negative except as indicated General: Denies: Fever Eyes: Denies: Visual changes - bilaterally ENT: Denies: Bilateral ear pain Cardiovascular: Denies: Chest pain Respiratory: Reports: Dyspnea, Cough. Denies: Sputum Gastrointestinal: Reports: Diarrhea. Denies: Abdominal pain, Nausea, Vomiting Musculoskeletal: Reports: Swelling Skin: Reports: Wounds Neurological: Denies: Headache Hematologic: Denies: Easy bruising Allergy: Denies: Uticaria Physical Exam Vital Signs/Narrative: Vital Signs Temp Pulse Resp BP Pulse Ox 09/17/20 05:38 96.3 F L 87 22 H 108/65 94 Inital Vital Signs reviewed: Yes General: Well nourished Head: Normocephalic Eyes: EOMI ENT: Moist mucous membranes Neck: Supple Cardiovascular: Regular rate, Regular rhythm Respiratory: - - Patient is hyperventilating but lungs are clear to auscultation I do not appreciate rales, rhonchi, wheezes Abdomen: Soft, Nontender Extremities: - - Bilateral lower extremity edema and venous stasis changes, patient has multiple open wounds on the bilateral legs Skin: Normal color Neurological: Alert Psychological: - - Patient is anxious Diagnostic/Tx/Re-eval Impressions Chest X-Ray 09/17/20 05:47 IMPRESSION: Small right pleural effusion with overlying atelectasis or small infiltrate in the right lung base. Mild cardiomegaly. Electronically Signed: Dimas Tian MD at 6:22 EST , Service support , 09/17/20 05:47 Chest 1 View (Portable) [RAD] Stat 09/17/20 06:04 Mucosa - Nose SARS-CoV-2 Antigen (Rapid) - Final Laboratory Results 09/17/20 09/17/20 09/17/20 05:50 05:50 05:50 WBC 10.2 RBC 4.44 Hgb 12.4 Hct 41.7 MCV 93.9 MCH 27.9 MCHC 29.7 L RDW Std Deviation 56.2 H RDW Coeff of Bro 16.5 H Plt Count 173 MPV 11.2 Immature Gran % (Auto) 0.500 Neut % (Auto) 70.7 H Lymph % (Auto) 19.6 [place] % (Auto) 8.1 Eos % (Auto) 0.8 Baso % (Auto) 0.3 Absolute Neuts (auto) 7.2 Absolute Lymphs (auto) 1.99 Nucleated RBC % 0.5 Sodium Cancelled Potassium Cancelled Chloride Cancelled Carbon Dioxide Cancelled Anion Gap Cancelled BUN Cancelled Creatinine Cancelled Estim Creat Clear Calc Cancelled Est GFR (MDRD) Af Amer Cancelled Est GFR (MDRD) Non-Af Cancelled BUN/Creatinine Ratio Cancelled Glucose Cancelled Calcium Cancelled Troponin I Cancelled B-Natriuretic Peptide 718.5 H 09/17/20 06:13 WBC RBC Hgb Hct MCV MCH MCHC RDW Std Deviation RDW Coeff of Bro Plt Count MPV Immature Gran % (Auto) Neut % (Auto) Lymph % (Auto) [place] % (Auto) Eos % (Auto) Baso % (Auto) Absolute Neuts (auto) Absolute Lymphs (auto) Nucleated RBC % Sodium 135 L Potassium 4.0 Chloride 101 Carbon Dioxide 28.0 Anion Gap 6 BUN 22 H Creatinine 1.18 H Estim Creat Clear Calc 51.90 Est GFR (MDRD) Af Amer 65 Est GFR (MDRD) Non-Af 54 L BUN/Creatinine Ratio 18.6 Glucose 119 H Calcium 7.9 L Troponin I 0.018 B-Natriuretic Peptide - Medical Decision Making EKG shows normal sinus rhythm at a rate of 85. Patient appears very anxious on initial presentation hyperventilating. She was given Ativan. On reevaluation she was found hanging off the end of the bed confused. She was able to stand with assistance and be put back in the bed. She is answering questions appropriately but does seem disoriented. She states she had a similar reaction when she was given Ativan as an inpatient. She had not told us this prior to administering Ativan. Her laboratory studies are notable for elevated BNP. Chest x-ray shows a small effusion. Patient was given IV Lasix. Her wounds do appear to have some purulent drainage and I did cover with Zosyn. She does have blanching erythema of the lower extremities and up onto the lower abdomen. It is not hot to the touch. I did add on a CPK which is pending. Discussed with the hospitalist and admitted. ED Disposition - Plan for ED Patient: Disposition: Acute Care Hospital [facility] Diagnosis: CHF (congestive heart failure), Wound, open, leg Referrals: Care Physician,No Primary [NON-STAFF] -
[2020-09-17] MEDS: LORazepam 2 MG/ML Syringe 1 MG IV (06:09)
[2020-09-17 06:41] LABS: Anion Gap 6 (5-15); BUN 22 mg/dL (7-18); BUN/Creat Ratio 18.6 RATIO (10-20); Calcium,Total 7.9 mg/dL (8.5-10.1); Chloride 101 mmol/L (98-107); Creatinine, Serum 1.18 mg/dL (0.55-1.02); EST Glomerular Filtration Rate 54 mL/min (>60); Est Glom Filt Rate - Afr Amer 65 mL/min (>60); Glucose 119 mg/dL (74-106); Sodium Level 135 mmol/L (136-145)
[2020-09-17 06:59] LABS: BNP,B-Type NATRIURETIC PEPTIDE 718.5 pg/mL (0-100)
--- NOTE | 2020-09-17 07:10 | NURSING ---
DR HERNANDEZ FOR DR ANDUJAR
[2020-09-17] MEDS: Furosemide 40 MG/4 ML Vial IV ×2 (07:13→13:57)
--- NOTE | 2020-09-17 07:22 | HP.PCM_ITS ---
Problem List (1) CHF (congestive heart failure) Status: Chronic Qualifiers: Heart failure type: diastolic Heart failure chronicity: acute on chronic Qualified Code(s): I50.33 - Acute on chronic diastolic (congestive) heart failure (2) Wound, open, leg Status: Chronic Qualifiers: Laterality: bilateral (3) Accelerated hypertension Status: Resolved (4) Acute CHF Status: Inactive (5) Anasarca Status: Inactive (6) Pleural effusion on right Status: Inactive History of Present Illness Date of Admission: 09/17/20 Chief Complaint: Shortness of breath The patient is a 40 year old F with past medical history significant for congestive heart failure with preserved ejection fraction recently discharged from the hospital following admission with exacerbation who presented with shortness of breath. Patient apparently did receive Ativan in the emergency department resulting in patient becoming very delirious history was therefore taken from the signout note from the ED physician. Patient had apparently experienced progressive shortness of breath over the past couple of weeks. Presented to the ED. An assessment of acute congestive heart failure made admitted to monitored bed for further management Past Medical History Past Medical History (Chronic Problems): Chronic Problems CHF (congestive heart failure) (Chronic) Wound, open, leg (Chronic) Allergies codeine phosphate [From Tylenol-Codeine #3] Allergy (Verified 09/17/20 05:44) Rash tramadol Adverse Reaction (Verified 09/17/20 05:44) Nausea Home Medications: Ambulatory Orders Medication Instructions Recorded Carvedilol [Coreg (Beta Venancio)] 12.5 mg PO BID #60 tab 09/03/20 Furosemide [Lasix] 60 mg PO DAILY #90 tab 09/03/20 Lisinopril [Zestril] 20 mg PO DAILY #30 tab 09/03/20 Potassium Chloride 20 meq PO DAILY #60 capsule.er 09/03/20 Surgical History: - - Ovarian cyst removal. Psychiatric History: No pertinent psych hx CIRCULAR KNITTER History: No pertinent CIRCULAR KNITTER history Smoking Status: Former smoker - *Family History Maternal History Items: No pertinent history Paternal History Items: Hypertension Review of Systems Constitutional: Reports: Fatigue Unable to obtain accurate/complete ROS d/t: Being encephalopathic after receiving Ativan from the emergency department VTE Information - Inpt Only VTE Present on Admission: No VTE Mechan Device Prophylaxis: None VTE Pharm Prophylaxis ordered?: Yes Objective: GENERAL: Drowsy but arousable HEENT: Atraumatic; EYES; Anicteric, Normal Conjunctiva NECK; supple, normal thyroid, RESPIRATORY: Diminished to auscultation CARDIOVASCULAR: Regular S1 S2, GI: soft, normoactive bowel sounds, : No Renal angle tenderness; EXTREMITIES: Bilateral lower extremity edema MUSCULOSKELETAL: no muscle waisting NEURO: Awake; no lateralizing signs. SKIN: Stasis dermatitis PSYCH; Flat affect - Physical Exam Vitals/I&O's: Vital Signs Temp Pulse Resp BP Pulse Ox 96.3 F L 82 19 H 107/74 97 09/17/20 05:38 09/17/20 07:12 09/17/20 06:45 09/17/20 07:12 09/17/20 06:45 Oxygen Delivery Method Room Air Weight: 98.9 kg Body Mass Index (BMI) 38.6 Microbiology Past 72 Hours 09/17/20 06:04 Mucosa - Nose SARS-CoV-2 Antigen (Rapid) - Final Laboratory Results 09/17/20 05:50: WBC 10.2, RBC 4.44, Hgb 12.4, Hct 41.7, MCV 93.9, MCH 27.9, MCHC 29.7 L, RDW Std Deviation 56.2 H, RDW Coeff of Bro 16.5 H, Plt Count 173, MPV 11.2, Immature Gran % (Auto) 0.500, Neut % (Auto) 70.7 H, Lymph % (Auto) 19.6, Wallace % (Auto) 8.1, Eos % (Auto) 0.8, Baso % (Auto) 0.3, Absolute Neuts (auto) 7.2, Absolute Lymphs (auto) 1.99, Nucleated RBC % 0.5 09/17/20 05:50: Sodium Cancelled, Potassium Cancelled, Chloride Cancelled, Carbon Dioxide Cancelled, Anion Gap Cancelled, BUN Cancelled, Creatinine Cancelled, Estim Creat Clear Calc Cancelled, Est GFR (MDRD) Af Amer Cancelled, Est GFR (MDRD) Non-Af Cancelled, BUN/Creatinine Ratio Cancelled, Glucose Cancelled, Calcium Cancelled, Troponin I Cancelled 09/17/20 05:50: B-Natriuretic Peptide 718.5 H 09/17/20 06:13: Sodium 135 L, Potassium 4.0, Chloride 101, Carbon Dioxide 28.0, Anion Gap 6, BUN 22 H, Creatinine 1.18 H, Estim Creat Clear Calc 51.90, Est GFR (MDRD) Af Amer 65, Est GFR (MDRD) Non-Af 54 L, BUN/Creatinine Ratio 18.6, Glucose 119 H, Calcium 7.9 L, Troponin I 0.018 09/17/20 06:13: Total Creatine Kinase Pending Current Medications Piperacillin Sod/Tazobactam (Sod 3.375 gm/ Sodium Chloride) 50 mls @ 100 mls/hr IV X1 ONE Stop: 09/17/20 07:36 Assessment/Plan All Active Problems Accelerated hypertension (Resolved) Patient is a 40-year-old presented with progressive shortness of breath 1. Acute on chronic congestive heart failure with preserved ejection fraction ?admitted to monitored bed placed on strict input and output, daily weight, IV Lasix Pimental oxygen titrated to keep saturation greater than 90 2D echo obtained on 09/01/2020 demonstrated EF of 55% with mild concentric left ventricular hypertrophy 2. Hypertension - Blood pressure controlled, home medications continued with dose adjustment as needed 3. History of polysubstance abuse ?With patient being encephalopathic did request for urine tox screen 4. Morbid obesity with BMI of 38 ?Plan is for patient to be counseled on weight reduction 5. Bilateral stasis dermatitis ?As a result of patient congestive heart failure consult placed wound care nurse 6. DVT prophylaxis ?Lovenox Inpatient E&M: [id number] Init Hosp L3
--- NOTE | 2020-09-17 07:23 | NURSING ---
PCU CHF, LEG WOUNDS, DEBILITY ANAHI
[2020-09-17 07:30] LABS: CPK Total, Creatine Kinase 272 U/L (26-192)
--- NOTE | 2020-09-17 11:08 | CASEMGMT ---
RN CRISPIN readmission note: Pt was admitted on 09/01/2020-09/03/20 for CHF, newly diagnosed uncontrolled HTN, pulmonary HTN. Pt EF normal. Pt declined being trf'd to tertiary care facility for pulm HTN. Pt did not qualify for home O2. Pt did not have PCP. PCP appt set up prior to dc. Pt was dc'd to home. On 09/06/2020 pt was in ER for SOB. She had been sent by her PCP Dr. Calvin from the appt. Pt sent home to continue prior dc instructions. Pt admitted on 09/17/2020 for CHF. Pt receiving 40mg IV lasix every 8 hours. ANGEL LUIS ROA in to see pt. Unable to waken pt. Pt did move her legs when CM called her name. She did not open her eyes. Pt had been given Ativan in the ED. CM will cont to follow.
[2020-09-17] MEDS: Carvedilol 12.5 MG Tablet PO ×2 (11:09→20:49)
[2020-09-17] MEDS: Enoxaparin 40 MG/0.4 ML Syringe SC (11:09)
[2020-09-17] MEDS: Lisinopril 20 MG Tablet PO (11:09)
[2020-09-17] MEDS: Famotidine 20 MG Tablet PO ×2 (11:09→20:49)
[2020-09-17] MEDS: Potassium Chloride Oral Tablet 20 MEQ PO (11:09)
[2020-09-17 11:53] LABS: Amphetamine Urine VISTA POSITIVE (<1000 ng/mL); Barbiturate Urine VISTA NEGATIVE (< 200 ng/mL); Benzodiazepine Urine VISTA NEGATIVE (< 200 ng/mL); Cocaine Urine VISTA NEGATIVE (< 300 ng/mL); Ecstacy Urine VISTA NEGATIVE (< 500 ng/mL); Methadone Urine VISTA NEGATIVE (< 300 ng/mL); PCP Urine VISTA NEGATIVE (< 25 ng/mL); THC Urine VISTA NEGATIVE (< 50 ng/mL); Vista UDS pH Range 6
--- NOTE | 2020-09-17 13:06 | CASEMGMT ---
RN CM in to pt room. Pt sitting up in bed just finishing lunch. Introduced self and role and pt began crying. TRANSPORTER DRIVER in room reports pt has been crying when staff talk to her. Pt reports taking her meds as prescribed at home after last hospital stay. She plans to continue following up with Dr. Calvin. Pt states she is not sure why she is in the hospital or how she is doing. Notified pt's nurse Merari. Pt denied any further concerns or needs.
[2020-09-17] MEDS: Acetaminophen 325 MG Tablet 650 MG PO (13:56)
[2020-09-17] MEDS: 0.9% Saline Lock 10 ML Syringe IV (13:57)
[2020-09-18] VITALS (7 sets, daily range): BP systolic 111–135; BP diastolic 73–88; PULSE 63–93; RESP 16–20; TEMP 36–36.5; O2SAT 92–98
[2020-09-18] MEDS: MELATONIN 3 MG TABLET PO (00:10)
[2020-09-18 05:53] LABS: Absolute Lymphocyte Count 2.17 X10^3/uL (0.83-4.51); Absolute Neutrophil Count 7.4 X10^3/uL (2.0-7.7); Basophil# 0.04 X10^3/uL; Basophil% 0.4 % (0-1); Eosinophil# 0.09 X10^3/uL; Eosinophils% 0.8 % (0-5); Hematocrit 41.2 % (37-47); Hemoglobin 12.6 g/dL (12.0-15.0); Lymphocyte # 2.17 X10^3/ul (4.0); Lymphocyte % 20.2 % (19-41); Mean Corp Hgb Conc 30.6 g/dL (32-36); Mean Corpuscular Hgb 28.1 pg (27.0-32.0); Mean Platelet Vol. 11.1 fl (6.2-12.0); Monocyte% 9.3 % (0-10); NRBC Flagged by Analyzer 0.4 % (0-5); Neutrophil % 68.8 % (47-70); Platelet Count 159 K/mm3 (150-450); RBC Distribution Width CV 16.5 % (11.6-14.6); RBC Distribution Width SD 55.3 fl (35.1-43.9); Red Blood Count 4.48 M/mm3 (4.2-5.4); White Blood Count 10.8 K/mm3 (4.4-11.0)
[2020-09-18 06:29] LABS: Anion Gap 7 (5-15); BUN 26 mg/dL (7-18); BUN/Creat Ratio 24.3 RATIO (10-20); Chloride 102 mmol/L (98-107); Creatinine, Serum 1.07 mg/dL (0.55-1.02); EST Glomerular Filtration Rate 60 mL/min (>60); Est Glom Filt Rate - Afr Amer 73 mL/min (>60); Estimated Creatinine Clearance 57.24 ml/min; Glucose 97 mg/dL (74-106); Sodium Level 132 mmol/L (136-145)
[2020-09-18] MEDS: Furosemide 40 MG Tablet PO (06:39)
--- NOTE | 2020-09-18 07:54 | PN_ITS ---
Reason for Visit: Acute congestive heart failure Acute delirium Subjective: Patient is a 40-year-old presented with progressive shortness of breath. Patient did receive Ativan in the emergency department which was followed later by episode of delirium Objective: GENERAL: Patient remains delirious HEENT: Atraumatic; EYES; Anicteric, Normal Conjunctiva NECK; supple, normal thyroid, RESPIRATORY: Diminished to auscultation CARDIOVASCULAR: Regular S1 S2, GI: soft, normoactive bowel sounds, : No Renal angle tenderness; EXTREMITIES: Bilateral lower extremity edema MUSCULOSKELETAL: no muscle waisting NEURO: Awake; no lateralizing signs. SKIN: Stasis dermatitis PSYCH; delirious. Vitals/I&O's: Vital Signs Temp Pulse Resp BP Pulse Ox 96.8 F L 79 16 135/88 H 96 09/18/20 06:00 09/18/20 07:02 09/18/20 06:00 09/18/20 06:00 09/18/20 06:00 Oxygen Flow Rate (L/min) 2 Oxygen Delivery Method Room Air Weight: 98.9 kg Body Mass Index (BMI) 38.6 Intake and Output for Last 24 Hours 09/16/20 09/17/20 09/18/20 23:59 23:59 23:59 Intake Total 458.25 / 678.25 220 / 220 Output Total 300 / 800 800 / 800 Balance 158.25 / -121.75 -580 / -580 Microbiology Past 72 Hours 09/17/20 06:04 Mucosa - Nose SARS-CoV-2 Antigen (Rapid) - Final Laboratory Results 09/17/20 11:15: Urine Opiates Screen NEGATIVE, Urine Methadone Screen NEGATIVE, Ur Barbiturates Screen NEGATIVE, Ur Phencyclidine Scrn NEGATIVE, Ur Amphetamines Screen POSITIVE H, U Methamphetamin-MDMA NEGATIVE, U Benzodiazepines Scrn NEGATIVE, Urine Cocaine Screen NEGATIVE, U Cannabinoids Screen NEGATIVE, Ur Drug Screen Comment 09/18/20 05:40: WBC 10.8, RBC 4.48, Hgb 12.6, Hct 41.2, MCV 92.0, MCH 28.1, MCHC 30.6 L, RDW Std Deviation 55.3 H, RDW Coeff of Bro 16.5 H, Plt Count 159, MPV 11.1, Immature Gran % (Auto) 0.500, Neut % (Auto) 68.8, Lymph % (Auto) 20.2, [place] % (Auto) 9.3, Eos % (Auto) 0.8, Baso % (Auto) 0.4, Absolute Neuts (auto) 7.4, Absolute Lymphs (auto) 2.17, Nucleated RBC % 0.4 09/18/20 05:40: Sodium 132 L, Potassium 4.0, Chloride 102, Carbon Dioxide 23.0, Anion Gap 7, BUN 26 H, Creatinine 1.07 H, Estim Creat Clear Calc 57.24, Est GFR (MDRD) Af Amer 73, Est GFR (MDRD) Non-Af 60, BUN/Creatinine Ratio 24.3 H, Glucose 97, Calcium 8.0 L Current Medications Acetaminophen (Acetaminophen 325 Mg Tablet) 650 mg PO Q6H PRN PRN PRN Reason: Pain Score 1-10/Temp > 100.7 F Last Admin: 09/17/20 13:56 Dose: 650 mg Documented by: Albuterol Sulfate (Albuterol 2.5 Mg/3 Ml Vial.Neb.) 2.5 mg INHALATION Q2H PRN PRN PRN Reason: SOB/Wheezing Carvedilol (Carvedilol 12.5 Mg Tablet) 12.5 mg PO BID [facility] Last Admin: 09/17/20 20:49 Dose: 12.5 mg Documented by: Enoxaparin Sodium (Enoxaparin 40 Mg/0.4 Ml Syringe) 40 mg SC DAILY [facility] Last Admin: 09/17/20 11:09 Dose: 40 mg Documented by: Famotidine (Famotidine 20 Mg Tablet) 20 mg PO BID [facility] Last Admin: 09/17/20 20:49 Dose: 20 mg Documented by: Furosemide (Furosemide 40 Mg/4 Ml Vial) 40 mg IV Q8 [facility] Last Admin: 09/18/20 05:59 Dose: Not Given Documented by: Guaifenesin (Guaifenesin 10 Ml Udc (200mg/10ml)) 20 ml PO Q4H PRN PRN PRN Reason: COUGH Sodium Chloride () 250 mls @ 15 mls/hr IV .[id number] PRN PRN Reason: Saline Flush Last Infusion: 09/17/20 14:29 Dose: 0 mls/hr Documented by: Sodium Chloride () 250 mls @ 15 mls/hr IV .[id number] PRN PRN Reason: Additional IVPB Infusion Lisinopril (Lisinopril 20 Mg Tablet) 20 mg PO DAILY [facility] Last Admin: 09/17/20 11:09 Dose: 20 mg Documented by: Melatonin (Melatonin 3 Mg Tablet) 3 mg PO QHS PRN PRN PRN Reason: INSOMNIA Last Admin: 09/18/20 00:10 Dose: 3 mg Documented by: Nitroglycerin (Nitroglycerin (Inpatient Use) 0.4 Mg Tab.Subl) 0.4 mg SL Q5M PRN PRN Reason: CARDIAC/CHEST PAIN Potassium Chloride (Potassium Chloride Oral Tablet 20 Meq) 20 meq PO DAILY [facility] Last Admin: 09/17/20 11:09 Dose: 20 meq Documented by: Promethazine HCl (Promethazine 25 Mg/Ml Syringe) 25 mg IM Q6H PRN PRN PRN Reason: Breakthrough Nausea/Vomiting Senna/Docusate Sodium (Senna/Docusate Sodium 1 Tablet) 2 tablet PO BID PRN PRN PRN Reason: Constipation Sodium Chloride (0.9% Saline Lock 10 Ml Syringe) 10 - 40 ml IV UD PRN PRN Reason: SALINE FLUSH Last Admin: 09/17/20 13:57 Dose: 10 ml Documented by: STROKE Vital Signs/Narrative: Vital Signs Temp Pulse Resp BP Pulse Ox 09/18/20 07:02 79 09/18/20 06:00 96.8 F L 68 16 135/88 H 96 Medical Necessity - Tobacco Use Smoking Status: Former smoker Assessment/Plan All Active Problems Accelerated hypertension (Resolved) Patient is a 40-year-old presented with progressive shortness of breath 1. Acute on chronic congestive heart failure with preserved ejection fraction ?admitted to monitored bed placed on strict input and output, daily weight, IV Lasix, supplemental oxygen titrated to keep saturation greater than 90; 2D echo obtained on 09/01/2020 demonstrated EF of 55% with mild concentric left ventricular hypertrophy 2. Acute delirium ?? Untoward side effects of Ativan. Patient is currently being monitored. Per nursing staff patient had a similar experience during her last admission. Urine drug screen obtained was positive for methamphetamines. 3. Hypertension - Blood pressure controlled, home medications continued with dose adjustment as needed 4. History of polysubstance abuse ?With patient being encephalopathic did request for urine tox screen 5. Morbid obesity with BMI of 38 ?Plan is for patient to be counseled on weight reduction 6. Bilateral stasis dermatitis ?As a result of patient congestive heart failure consult placed wound care nurse 7. DVT prophylaxis ?[facility] Inpatient E&M: [id number] [facility] Hosp L3
[2020-09-18] MEDS: Potassium Chloride Oral Tablet 20 MEQ PO (09:02)
[2020-09-18] MEDS: Lisinopril 20 MG Tablet PO (09:02)
[2020-09-18] MEDS: Carvedilol 12.5 MG Tablet PO (09:02)
[2020-09-18] MEDS: Enoxaparin 40 MG/0.4 ML Syringe SC (09:02)
[2020-09-18] MEDS: Famotidine 20 MG Tablet PO (09:02)
--- NOTE | 2020-09-18 13:26 | PCM.DC ---
- Discharge Diagnoses Current Active Problems: Current Active and Chronic Problems CHF (congestive heart failure) (Chronic) Wound, open, leg (Chronic) You will use the following diet at home:: Fluid restricted (specify 2000 mls, 1500 mls) Discharge Activity: Return to Normal Activity, May not drive while taking narcotic pain medications. Allergies/Adverse Reactions: Allergies codeine phosphate [From Tylenol-Codeine #3] Allergy (Verified 09/17/20 05:44) Rash tramadol Adverse Reaction (Verified 09/17/20 05:44) Nausea Medications to take at Discharge Carvedilol [Coreg (Beta Venancio)] 12.5 mg PO BID #60 tab 09/03/20 Lisinopril [Zestril] 20 mg PO DAILY #30 tab 09/03/20 Potassium Chloride 20 meq PO DAILY #60 capsule.er 09/03/20 Furosemide [Lasix] 40 mg PO BID@1000,1800 #120 tab 09/18/20 The following prescriptions were given: Furosemide [Lasix] 40 mg PO BID@1000,1800 #120 tab Transmission Status: Pending to [facility] #30 Primary Care Physician: Care Physician,No Primary [NON-STAFF] - Please follow up with your Primary Care Physician in: in 1-2 weeks Test Results: Test results from this visit will be discussed in further detail at your follow-up appointment, if applicable. Proposed Discharge Date: 09/18/20
--- NOTE | 2020-09-18 13:38 | DS.PCM_ITS ---
Discharge Date and Diagnosis Date of Admission: 09/17/20 Date of Discharge: 09/18/20 - Primary Discharge Diagnosis Acute Problems: Acute congestive heart failure with preserved ejection fraction - Secondary Discharge Diagnosis Chronic Problems: Chronic Problems CHF (congestive heart failure) (Chronic) Wound, open, leg (Chronic) Hospital Course and Treatment Imaging Results: Clinical Impression(s) from Imaging Studies Chest X-Ray 09/17/20 05:47 IMPRESSION: Small right pleural effusion with overlying atelectasis or small infiltrate in the right lung base. Mild cardiomegaly. Electronically Signed: Dimas Tian MD at 6:22 EST , Service support , Consultations 09/17/20 16:31 Consult: Onc/Wound/composition stone applicator Routine Comment: Reason for Consult:: UNHEALING WOUNDS Operations: None Summary of Care Provided: Patient is a 40-year-old presented with progressive shortness of breath 1. Acute on chronic congestive heart failure with preserved ejection fraction ?admitted to monitored bed placed on strict input and output, daily weight, IV Lasix, supplemental oxygen titrated to keep saturation greater than 90; 2D echo obtained on 09/01/2020 demonstrated EF of 55% with mild concentric left ventricular hypertrophy 2. Acute delirium ?? Untoward side effects of Ativan. Patient is currently being monitored. Per nursing staff patient had a similar experience during her last admission. Urine drug screen obtained was positive for methamphetamines. -Patient acute delirium did resolve patient requested to be discharged home. Was instructed to follow-up with PCP for subsequent care 3. Hypertension - Blood pressure controlled, home medications continued with dose adjustment as needed 4. History of polysubstance abuse ?With patient being encephalopathic did request for urine tox screen 5. Morbid obesity with BMI of 38 ?Plan is for patient to be counseled on weight reduction 6. Bilateral stasis dermatitis ?As a result of patient congestive heart failure consult placed wound care nurse 7. DVT prophylaxis ?Lovenox - Physical Exam Vitals/I&O's: Vital Signs Temp Pulse Resp BP Pulse Ox 97.3 F L 89 20 H 122/88 H 98 09/18/20 09:01 09/18/20 09:01 09/18/20 09:01 09/18/20 09:01 09/18/20 09:01 Oxygen Flow Rate (L/min) 2 Oxygen Delivery Method Room Air Weight: 98.9 kg Body Mass Index (BMI) 38.6 Intake and Output for Last 24 Hours 09/16/20 09/17/20 09/18/20 23:59 23:59 23:59 Intake Total 458.25 / 678.25 700 / 700 Output Total 300 / 800 1050 / 1050 Balance 158.25 / -121.75 -350 / -350 Microbiology Past 72 Hours 09/17/20 06:04 Mucosa - Nose SARS-CoV-2 Antigen (Rapid) - Final Laboratory Results 09/18/20 05:40: WBC 10.8, RBC 4.48, Hgb 12.6, Hct 41.2, MCV 92.0, MCH 28.1, MCHC 30.6 L, RDW Std Deviation 55.3 H, RDW Coeff of Bro 16.5 H, Plt Count 159, MPV 11.1, Immature Gran % (Auto) 0.500, Neut % (Auto) 68.8, Lymph % (Auto) 20.2, Hinds % (Auto) 9.3, Eos % (Auto) 0.8, Baso % (Auto) 0.4, Absolute Neuts (auto) 7.4, Absolute Lymphs (auto) 2.17, Nucleated RBC % 0.4 09/18/20 05:40: Sodium 132 L, Potassium 4.0, Chloride 102, Carbon Dioxide 23.0, Anion Gap 7, BUN 26 H, Creatinine 1.07 H, Estim Creat Clear Calc 57.24, Est GFR (MDRD) Af Amer 73, Est GFR (MDRD) Non-Af 60, BUN/Creatinine Ratio 24.3 H, Glucose 97, Calcium 8.0 L Current Medications Acetaminophen (Acetaminophen 325 Mg Tablet) 650 mg PO Q6H PRN PRN PRN Reason: Pain Score 1-10/Temp > 100.7 F Last Admin: 09/17/20 13:56 Dose: 650 mg Documented by: Albuterol Sulfate (Albuterol 2.5 Mg/3 Ml Vial.Neb.) 2.5 mg INHALATION Q2H PRN PRN PRN Reason: SOB/Wheezing Carvedilol (Carvedilol 12.5 Mg Tablet) 12.5 mg PO BID JUSTINA Last Admin: 09/18/20 09:02 Dose: 12.5 mg Documented by: Enoxaparin Sodium (Enoxaparin 40 Mg/0.4 Ml Syringe) 40 mg SC DAILY [facility] Last Admin: 09/18/20 09:02 Dose: 40 mg Documented by: Famotidine (Famotidine 20 Mg Tablet) 20 mg PO BID [facility] Last Admin: 09/18/20 09:02 Dose: 20 mg Documented by: Furosemide (Furosemide 40 Mg Tablet) 40 mg PO BID@1000,1800 [facility] Guaifenesin (Guaifenesin 10 Ml Udc (200mg/10ml)) 20 ml PO Q4H PRN PRN PRN Reason: COUGH Sodium Chloride () 250 mls @ 15 mls/hr IV .[id number] PRN PRN Reason: Saline Flush Last Infusion: 09/18/20 13:34 Dose: Infused Documented by: Sodium Chloride () 250 mls @ 15 mls/hr IV .[id number] PRN PRN Reason: Additional IVPB Infusion Lisinopril (Lisinopril 20 Mg Tablet) 20 mg PO DAILY [facility] Last Admin: 09/18/20 09:02 Dose: 20 mg Documented by: Melatonin (Melatonin 3 Mg Tablet) 3 mg PO QHS PRN PRN PRN Reason: INSOMNIA Last Admin: 09/18/20 00:10 Dose: 3 mg Documented by: Nitroglycerin (Nitroglycerin (Inpatient Use) 0.4 Mg Tab.Subl) 0.4 mg SL Q5M PRN PRN Reason: CARDIAC/CHEST PAIN Potassium Chloride (Potassium Chloride Oral Tablet 20 Meq) 20 meq PO DAILY [facility] Last Admin: 09/18/20 09:02 Dose: 20 meq Documented by: Promethazine HCl (Promethazine 25 Mg/Ml Syringe) 25 mg IM Q6H PRN PRN PRN Reason: Breakthrough Nausea/Vomiting Senna/Docusate Sodium (Senna/Docusate Sodium 1 Tablet) 2 tablet PO BID PRN PRN PRN Reason: Constipation Sodium Chloride (0.9% Saline Lock 10 Ml Syringe) 10 - 40 ml IV UD PRN PRN Reason: SALINE FLUSH Last Admin: 09/17/20 13:57 Dose: 10 ml Documented by: Discharge Diet: 8 Cup Fluid Restriciton Discharge Activity: Return to Normal Activity, May not drive while taking narcotic pain medications. Home Medications: Medications to take at Discharge Carvedilol [Coreg (Beta Venancio)] 12.5 mg PO BID #60 tab 09/03/20 Lisinopril [Zestril] 20 mg PO DAILY #30 tab 09/03/20 Potassium Chloride 20 meq PO DAILY #60 capsule.er 09/03/20 Furosemide [Lasix] 40 mg PO BID@1000,1800 #120 tab 09/18/20 Following Prescriptions Were Given to Patient: Furosemide [Lasix] 40 mg PO BID@1000,1800 #120 tab Transmission Status: Pending to [facility] Primary Care Physician: Care Physician,No Primary [NON-STAFF] - Please follow up with your Primary Care Physician in: in 1-2 weeks Disposition: Home Minutes spent on discharge:: 35 Patient Condition:: Stable Medical Necessity - Tobacco Use Smoking Status: Former smoker Meaningful Use Info Meaningful Use Diagnoses (Choose all that apply): CHF - CHF TERE/ARB ordered at discharge?: Yes Documented LVEF (%): 55 Inpatient E&M: [id number] Disch Hosp
--- NOTE | 2020-09-18 14:05 | PHA.DC.MC ---
Pharmacy Service has performed discharge medication reconciliation and counseling for this patient. The patient was counseled on the following discharge medications and changes in medications for homegoing were reviewed. 1. LASIX --> DOSE CHANGE The Reason for Use, instructions for use, and potential side effects were reviewed for all new medications. The patient's questions regarding all of their medications were answered. The patient was able to verbally demonstrate an understanding of their discharge medications. Home Medications Carvedilol [Coreg (Beta Venancio)] 12.5 mg PO BID #60 tab 09/03/20 Lisinopril [Zestril] 20 mg PO DAILY #30 tab 09/03/20 Potassium Chloride 20 meq PO DAILY #60 capsule.er 09/03/20 Furosemide [Lasix] 40 mg PO BID@1000,1800 #120 tab 09/18/20
--- NOTE | 2020-09-18 15:17 | CASEMGMT ---
[facility] Palliative Screening Tool completed for Strata 3. Pt did not meet criteria.
--- NOTE | 2020-09-19 12:39 | CASEMGMT ---
ANGEL LUIS [facility]A Discharge Follow-Up Phone Call. Lace: 11 Strata: 3 Discharge Date: 09/18/20 Adm Dx: CHF Attempted discharge f/u phone call. No answer. Non-identifying VM left for pt to call back if she has any questions/concerns/needs. Phone number to [facility] CM provided. Francisco RAJAN RN CM
== END 2020-09-18 14:21 | disposition home or self-care (01) | DRG 194 ==
LOC: ED 07:24 → PCU 07:35
PROVIDERS: Admitting Provider Internal Medicine; Emergency Provider Emergency Medicine; PCP Family Medicine; Visit Provider Internal Medicine
DX: I11.0 Hypertensive heart disease with heart failure (principal); I50.33 Acute on chronic diastolic (congestive) heart failure; Z87.891 Personal history of nicotine dependence; I87.8 Other specified disorders of veins; Z79.899 Other long term (current) drug therapy; E66.01 Morbid (severe) obesity due to excess calories; Z68.38 Body mass index [BMI] 38.0-38.9, adult; I87.2 Venous insufficiency (chronic) (peripheral); R41.0 Disorientation, unspecified; T42.4X5A Adverse effect of benzodiazepines, initial encounter; F15.10 Other stimulant abuse, uncomplicated
CPT/HCPCS: 71045; 80048; 80307; 82550; 83880; 84484; 85025; 87426; 93005; 97802; 99251; 99283; 99406; J7050; A4216; G0463; J1940